=== PATIENT | female | born 1945 | race Caucasian/White ===

== ENCOUNTER 2018-01-26 12:19 | Inpatient (IN) | payer MEDICARE, OTHER ==
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
[2018-01-26 15:54] LABS: % BASOPHILS 0.3 % (0.0-2.0); % EOSINOPHILS 1.6 % (0.0-5.0); % LYMPHOCYTES 13.5 % (20.0-50.0); % NEUTROPHILS 76.6 % (40.0-80.0); EOSINOPHILE ABSOLUTE 0.1 Th/cmm (0.1-0.4); HEMATOCRIT 49.9 % (41.0-60); HEMOGLOBIN 15.7 gm/dL (12-16); MEAN CORPUSCULAR HEMOGLOBIN 31.5 pg (27.0-31.0); MEAN CORPUSCULAR HGB CONC 31.5 pg (28.0-36.0); MEAN PLATELET VOLUME 8.9 fl; MONOCYTE ABSOLUTE 0.6 Th/cmm (0.3-1.0); NEUTROPHILE ABSOLUTE 5.6 Th/cmm (1.8-8.0); PLATELET COUNT 285 Th/cmm (150-400); RED BLOOD COUNT 4.99 Mil/cmm (3.80-5.20); RED CELL DISTRIBUTION WIDTH 16.2 % (11.5-20.0); WHITE BLOOD COUNT 7.3 Th/cmm (4.8-10.8)
[2018-01-26] MEDS ORDERED: Albuterol/Ipratropium Neb 3 ML AERS HHN ONE ×2 (16:00→16:07)
[2018-01-26 16:05] LABS: ANION GAP 9.4 (7.0-16.0); BUN - UREA NITROGEN 26 mg/dL (7-25); CALCIUM SERUM 9.1 mg/dL (8.6-10.3); CARBON DIOXIDE 36.6 mEq/L (21.0-31.0); CHLORIDE 97 mEq/L (98-107); CREATININE - SERUM 0.9 mg/dL (0.6-1.2); GFR AFRICAN-AMERICAN > 60.0 ml/min (>90); GFR NON AFRICAN-AMERICAN > 60.0 ml/min; GLUCOSE 89 mg/dL (70-105); SODIUM SERUM 139 mEq/L (136-145)
[2018-01-26] MEDS ORDERED: Morphine Sulfate 2 mg/mL 1mL Syr IVP PRN (18:18)
[2018-01-26] MEDS ORDERED: Potassium Chloride 40 MEQ, Lidocaine 1% 20mL Vial 25 MG in Sodium Chloride 0.9% 250 ML IV PRN (18:18)
[2018-01-26] MEDS ORDERED: Potassium Chloride 20 mEq ER Tab PO PRN (18:18)
[2018-01-26] MEDS ORDERED: Mag Sulfate 2gm/50mL Premix 2 GM/50 ML BAG IV PRN (18:18)
[2018-01-26 20:44] LABS: A1C % 5.3 % (4.0-6.0)
[2018-01-27] MEDS: Sodium Chloride 0.9% 1,000 ML IV SCH (00:54)
[2018-01-27] MEDS: Escitalopram Oxalate 5 mg Tab PO SCH ×2 (00:55→21:29)
[2018-01-27] MEDS: Albuterol/Ipratropium Neb 3 ML AERS HHN SCH ×5 (01:12→18:48)
--- NOTE | 2018-01-27 07:49 | Diagnostic Imaging Report ---
Portable chest x-ray HISTORY: Cough The heart is enlarged. Atherosclerotic calcification seen in the aorta. Some linear parenchymal density noted in the right lung base. Changes may be chronic. However, early pneumonia or atelectasis cannot be excluded. Blunting of the left costophrenic angle. The finding may be associated with pleural thickening. A small effusion cannot be excluded. IMPRESSION: 1. Cardiomegaly with atherosclerotic vascular changes 2. Faint linear density within the right lung base. The finding may be chronic. However, early infiltrate cannot be excluded. Clinical correlation is needed. 3. Blunting left costophrenic angle. The finding may be associated with pleural thickening. A small pleural effusion cannot be excluded.
[2018-01-27] MEDS: INSULIN ASPART SLIDING SCALE 100 UNITS/ML UNIT SUBQ SCH ×4 (08:22→21:47)
[2018-01-27] MEDS: Ferrous Sulfate 325 MG TAB PO SCH ×2 (09:52→10:13)
[2018-01-27] MEDS: Levofloxacin 500mg/100mL 500 MG/100 ML BAG IV SCH (09:53)
--- NOTE | 2018-01-27 12:07 | History & Physical ---
ADMIT DATE: 01/26/2018 CHIEF COMPLAINT: Cough, congestion, fever, shortness of breath along with pus drainage out of the left eye socket. HISTORY OF PRESENT ILLNESS: The patient is a 72-year-old female. She presents for longterm facility for worsening left eye socket cellulitis along with cough, congestion and fevers. She has history of Alzheimer dementia, COPD, diabetes, and hypertension as well. The ER had given report seeing there was nothing significant amount of left thigh socket; however, this morning, there is a significant amount of drainage and pus as well. Chest x-ray shows developing infiltrate and the lungs along with her significant cough, congestion and shortness of breath contributing to the pneumonia picture as well. PAST MEDICAL HISTORY: Significant for alzheimer's dementia, COPD, diabetes, hypertension. SOCIAL HISTORY: No history of alcohol, tobacco, or drug abuse. FAMILY HISTORY: Noncontributory. ALLERGIES: HYDROCODONE and MORPHINE, but the exact reaction is unknown. HOME MEDICATIONS: Reviewed and reconciled. REVIEW OF SYSTEMS: GENERAL: Positive for recent fatigue and low grade fevers and decreased appetite. HEENT: No recent head trauma. She has no left eye in the socket. She has been experiencing some drainage and pain in the left eye socket. No change in taste or smell. Oral: No recent pain or discharge. SKIN: Positive for redness, erythema on the left eye socket as well. ABDOMEN: No recent pain or distention. PSYCHIATRIC: No history of psychosis or hallucinations. She does have history of labile mood. NEUROLOGIC: She has history of Alzheimer's dementia. Her confusion has been worsening recently. EXTREMITIES: No recent edema. RESPIRATORY: Positive for recent cough, congestion and shortness of breath as well. MUSCULOSKELETAL: She has history of unsteady gait. ENDOCRINE: She has a history of diabetes. GENITOURINARY: No recent increased urinary frequency, but there is a possibility of dysuria. PHYSICAL EXAMINATION: VITAL SIGNS: Temperature 97 degrees, heart rate is 86, respiration is 19, blood pressure 140/77. Currently, no pain. GENERAL: No acute distress, awake, alert to name and she knows she is in the hospital. HEENT: Normocephalic, atraumatic. Left eye socket has pus drainage and there is erythema and mild inflammation as well. ABDOMEN: Nontender, nondistended. NECK: No JVD. CARDIOVASCULAR: Regular rate and rhythm. ABDOMEN: Nontender, nondistended. EXTREMITIES: No edema. RESPIRATORY: Decreased breath sounds bilaterally with rales and congestion. MUSCULOSKELETAL: Decreased muscle strength in lower extremities. GENITOURINARY: No hematuria is noted. LABORATORY DATA: Sodium 139, potassium 4.0, chloride 97, bicarb 36.6, BUN 26, creatinine 0.9, calcium is 9.1, hemoglobin A1c is 5.3. White count is 7.3, hemoglobin 15.7, platelet count is 85,000. Chest x-ray shows infiltrates. ASSESSMENT: 1. Left eye socket cellulitis. 2. Aspiration pneumonia. 3. Alzheimer's dementia with exacerbation. 4. Chronic obstructive pulmonary disease. 5. Diabetes mellitus. 6. Hypertension. PLAN: The patient has been started on Levaquin and Flagyl. Morphine will not be given as she is allergic to hydromorphone/morphine as well. Continue tramadol p.r.n. pain. Follow up on the rest of the labs. Continue fingerstick blood sugars and regular insulin sliding scale. Her spirolactone has been changed to once a day. Vitals are stable. I have asked the staff to remove ____ as the patient is more calm and stable now. JOB# [id number]
[2018-01-27] MEDS: metroNIDAZOLE 500mg/NS 100mL 500 MG/100 ML BAG IV SCH ×2 (13:50→21:29)
[2018-01-28] MEDS: Albuterol/Ipratropium Neb 3 ML AERS HHN SCH ×4 (00:37→18:46)
[2018-01-28 05:38] LABS: % BASOPHILS 0.6 % (0.0-2.0); % LYMPHOCYTES 10.7 % (20.0-50.0); % MONOCYTES 7.6 % (2.0-10.0); % NEUTROPHILS 79.1 % (40.0-80.0); EOSINOPHILE ABSOLUTE 0.1 Th/cmm (0.1-0.4); HEMATOCRIT 46.1 % (41.0-60); HEMOGLOBIN 14.8 gm/dL (12-16); LYMPHOCYTE ABSOLUTE 0.7 Th/cmm (1.5-3.0); MEAN CELL VOLUME 98.8 fl (81-100); MEAN CORPUSCULAR HEMOGLOBIN 31.6 pg (27.0-31.0); MEAN PLATELET VOLUME 8.1 fl; MONOCYTE ABSOLUTE 0.5 Th/cmm (0.3-1.0); NEUTROPHILE ABSOLUTE 5.4 Th/cmm (1.8-8.0); PLATELET COUNT 209 Th/cmm (150-400); RED BLOOD COUNT 4.67 Mil/cmm (3.80-5.20); RED CELL DISTRIBUTION WIDTH 15.4 % (11.5-20.0); WHITE BLOOD COUNT 6.7 Th/cmm (4.8-10.8)
[2018-01-28 05:53] LABS: ANION GAP 7.2 (7.0-16.0); BUN - UREA NITROGEN 16 mg/dL (7-25); CARBON DIOXIDE 35.3 mEq/L (21.0-31.0); CHLORIDE 97 mEq/L (98-107); CREATININE - SERUM 0.6 mg/dL (0.6-1.2); GFR AFRICAN-AMERICAN > 60.0 ml/min (>90); GFR NON AFRICAN-AMERICAN > 60.0 ml/min; GLUCOSE 118 mg/dL (70-105); POTASSIUM SERUM 3.5 mEq/L (3.5-5.1); SODIUM SERUM 136 mEq/L (136-145)
[2018-01-28] MEDS: metroNIDAZOLE 500mg/NS 100mL 500 MG/100 ML BAG IV SCH ×3 (06:00→22:51)
[2018-01-28] MEDS: Sodium Chloride 0.9% 1,000 ML IV SCH (06:22)
[2018-01-28] MEDS: INSULIN ASPART SLIDING SCALE 100 UNITS/ML UNIT SUBQ SCH ×4 (06:47→21:30)
--- NOTE | 2018-01-28 09:00 | General Progress Note ---
Subjective - Review of Systems Service Date: 01/28/18 Subjective: Pt seen and eval. Comfortable in bed. No n,v,d or cp. No falls or sz. No acute pain. Confused. No seizures. Eye socket discharged improved. Objective - Results Result Diagrams: 01/28/18 05:10 01/28/18 05:10 Recent Labs: Laboratory Last Values WBC 6.7 Th/cmm (4.8-10.8) 01/28/18 05:10 RBC 4.67 Mil/cmm (3.80-5.20) 01/28/18 05:10 Hgb 14.8 gm/dL (12-16) 01/28/18 05:10 Hct 46.1 % (41.0-60) 01/28/18 05:10 MCV 98.8 fl (81-100) 01/28/18 05:10 MCH 31.6 pg (27.0-31.0) H 01/28/18 05:10 MCHC Differential 32.0 pg (28.0-36.0) 01/28/18 05:10 RDW 15.4 % (11.5-20.0) 01/28/18 05:10 Plt Count 209 Th/cmm (150-400) 01/28/18 05:10 MPV 8.1 fl 01/28/18 05:10 Neutrophils % 79.1 % (40.0-80.0) 01/28/18 05:10 Lymphocytes % 10.7 % (20.0-50.0) L 01/28/18 05:10 Monocytes % 7.6 % (2.0-10.0) 01/28/18 05:10 Eosinophils % 2.0 % (0.0-5.0) 01/28/18 05:10 Basophils % 0.6 % (0.0-2.0) 01/28/18 05:10 Sodium 136 mEq/L (136-145) 01/28/18 05:10 Potassium 3.5 mEq/L (3.5-5.1) 01/28/18 05:10 Chloride 97 mEq/L (98-107) L 01/28/18 05:10 Carbon Dioxide 35.3 mEq/L (21.0-31.0) H 01/28/18 05:10 Anion Gap 7.2 (7.0-16.0) 01/28/18 05:10 BUN 16 mg/dL (7-25) 01/28/18 05:10 Creatinine 0.6 mg/dL (0.6-1.2) 01/28/18 05:10 Est GFR ( Amer) > 60.0 ml/min (>90) 01/28/18 05:10 Est GFR (Non-Af Amer) > 60.0 ml/min 01/28/18 05:10 BUN/Creatinine Ratio 26.7 01/28/18 05:10 Glucose 118 mg/dL (70-105) H 01/28/18 05:10 POC Glucose 114 MG/DL (70 - 105) H 01/28/18 05:58 Hemoglobin A1c % 5.3 % (4.0-6.0) 01/26/18 15:00 Calcium 9.0 mg/dL (8.6-10.3) 01/28/18 05:10 Magnesium 2.3 mg/dL (1.9-2.7) 01/26/18 15:00 - Physical Exam Vitals and I&O: Vital Signs Temp 99 F 01/28/18 08:00 Pulse 94 01/28/18 08:00 Resp 20 01/28/18 08:00 BP 149/70 01/28/18 08:00 Pulse Ox 93 01/28/18 08:00 Intake & Output 01/27/18 01/28/18 01/28/18 18:59 06:59 18:59 Intake Total 2800 350 Balance 2800 350 Weight (lbs) 73.164 kg 73.028 kg Intake: Intake, IV Amount 1200 100 Levofloxacin 500mg/100mL 100 500 mg In 100 ml @ 100 mls/hr IV Q24HR [facility] Rx#: [id number] Sodium Chloride 0.9% 1, 1000 000 ml @ 70 mls/hr IV . [id number] [facility] Rx#:[id number] metroNIDAZOLE 500mg/NS 100 100 100mL 500 mg In 100 ml @ 100 mls/hr IV Q8HR [facility] Rx #:[id number] Oral 1600 250 Other: # Voids 3 3 # Bowel Movements 0 0 Stool Characteristics Soft Soft Weight Source Bedscale Bedscale Active Medications: Current Medications Acetazolamide (Diamox) 250 mg PO BID [facility] Stop: 03/28/18 09:07 Last Admin: 01/27/18 16:56 Dose: Not Given Albuterol/Ipratropium (Duoneb Neb) 3 ml HHN Q6H [facility] Stop: 03/27/18 18:29 Last Admin: 01/28/18 06:47 Dose: 3 ml Aspirin (Ecotrin) 81 mg PO DAILY [facility] Stop: 03/28/18 08:59 Last Admin: 01/27/18 10:13 Dose: Not Given Buspirone HCl (Buspar) 10 mg PO TID [facility] Stop: 03/27/18 20:59 Escitalopram Oxalate (Lexapro) 15 mg PO HS [facility] PRN Reason: Protocol Stop: 03/27/18 20:59 Last Admin: 01/27/18 21:29 Dose: 15 mg Ferrous Sulfate (Iron) 325 mg PO DAILY [facility] Stop: 03/28/18 08:59 Last Admin: 01/27/18 10:13 Dose: Not Given Heparin Sodium (Porcine) (Heparin) 5,000 units SUBQ Q12HR [facility] Stop: 03/27/18 20:59 Last Admin: 01/27/18 21:47 Dose: Not Given Potassium Chloride 40 meq/Lidocaine HCl 25 mg/ Sodium Chloride 272.5 mls @ 68 mls/hr IV DAILY PRN PRN Reason: k level less than 3.2 Stop: 03/27/18 18:17 Magnesium Sulfate (Magnesium Sulfate Premix) 2 gm in 50 mls @ 25 mls/hr IV DAILY PRN PRN Reason: Magnesium level less than 1.6 Stop: 03/27/18 18:17 Sodium Chloride (Nacl 0.9%) 1,000 mls @ 70 mls/hr IV .[id number] [facility] Stop: 03/27/18 22:39 Last Admin: 01/28/18 06:22 Dose: 70 mls/hr Levofloxacin (Levaquin Pb) 500 mg in 100 mls @ 100 mls/hr IV Q24HR [facility] Stop: 03/28/18 08:59 Last Infusion: 01/27/18 18:24 Dose: Infused Metronidazole (Flagyl) 500 mg in 100 mls @ 100 mls/hr IV Q8HR [facility] Stop: 03/28/18 12:59 Last Admin: 01/28/18 06:00 Dose: 100 mls/hr Insulin Aspart (Novolog Insulin Sliding Scale) 0 units SUBQ ACHS [facility] PRN Reason: Protocol Stop: 03/27/18 20:59 Last Admin: 01/28/18 06:47 Dose: Not Given Lorazepam (Ativan) 1 mg IVP Q4HR PRN; Protocol PRN Reason: Anxiety Stop: 03/27/18 18:17 Magnesium Oxide (Mag-Oxide) 400 mg PO BID PRN PRN Reason: Mg less than 1.9 Stop: 03/27/18 18:17 Ondansetron HCl (Zofran) 4 mg IVP Q6H PRN PRN Reason: Nausea / Vomiting Stop: 03/27/18 18:17 Potassium Chloride (Klor-Con) 40 meq PO DAILY PRN PRN Reason: k level less than 3.5 Stop: 03/27/18 18:17 Spironolactone (Aldactone) 25 mg PO DAILY [facility] Stop: 03/28/18 08:59 Last Admin: 01/27/18 10:14 Dose: Not Given Tramadol HCl (Ultram) 50 mg PO Q6HR PRN PRN Reason: Pain (Severe) Stop: 03/27/18 18:15 General: Cooperative, No acute distress HEENT: Other (eye socket discharge improved) Neck: Supple, no JVD Cardiovascular: Regular rate, Normal S1, Normal S2 Lungs: Other (has rales and congestion) Assessment/Plan - Assessment Assessment: Asp PNA Left eye socket cellulitis LAURA with exac COPD DM HTN - Plan Plan: Pt's puss drainage from eye socket has reduced. No n,v,d or cp. On breathing tx. On Levaquin and Flagyl. FU on labs.
[2018-01-28] MEDS: Ferrous Sulfate 325 MG TAB PO SCH (09:06)
[2018-01-28] MEDS: Levofloxacin 500mg/100mL 500 MG/100 ML BAG IV SCH (09:06)
[2018-01-28] MEDS: Escitalopram Oxalate 5 mg Tab PO SCH (21:39)
[2018-01-29] MEDS: Albuterol/Ipratropium Neb 3 ML AERS HHN SCH ×2 (00:22→07:39)
[2018-01-29 05:36] LABS: % BASOPHILS 0.1 % (0.0-2.0); % EOSINOPHILS 3.1 % (0.0-5.0); % LYMPHOCYTES 15.7 % (20.0-50.0); % MONOCYTES 7.5 % (2.0-10.0); % NEUTROPHILS 73.6 % (40.0-80.0); EOSINOPHILE ABSOLUTE 0.2 Th/cmm (0.1-0.4); HEMATOCRIT 46.8 % (41.0-60); HEMOGLOBIN 15.2 gm/dL (12-16); MEAN CELL VOLUME 98.2 fl (81-100); MEAN CORPUSCULAR HEMOGLOBIN 31.9 pg (27.0-31.0); MEAN CORPUSCULAR HGB CONC 32.5 pg (28.0-36.0); MEAN PLATELET VOLUME 8.4 fl; MONOCYTE ABSOLUTE 0.5 Th/cmm (0.3-1.0); NEUTROPHILE ABSOLUTE 4.5 Th/cmm (1.8-8.0); PLATELET COUNT 175 Th/cmm (150-400); RED BLOOD COUNT 4.76 Mil/cmm (3.80-5.20); RED CELL DISTRIBUTION WIDTH 15.7 % (11.5-20.0); WHITE BLOOD COUNT 6.2 Th/cmm (4.8-10.8)
[2018-01-29] MEDS: metroNIDAZOLE 500mg/NS 100mL 500 MG/100 ML BAG IV SCH (05:37)
[2018-01-29] MEDS: Sodium Chloride 0.9% 1,000 ML IV SCH (05:37)
[2018-01-29 05:51] LABS: ANION GAP 9.2 (7.0-16.0); BUN - UREA NITROGEN 8 mg/dL (7-25); CALCIUM SERUM 9.1 mg/dL (8.6-10.3); CARBON DIOXIDE 27.7 mEq/L (21.0-31.0); CHLORIDE 102 mEq/L (98-107); CREATININE - SERUM 0.5 mg/dL (0.6-1.2); GFR AFRICAN-AMERICAN > 60.0 ml/min (>90); GFR NON AFRICAN-AMERICAN > 60.0 ml/min; GLUCOSE 94 mg/dL (70-105); POTASSIUM SERUM 3.9 mEq/L (3.5-5.1); SODIUM SERUM 135 mEq/L (136-145)
[2018-01-29] MEDS: INSULIN ASPART SLIDING SCALE 100 UNITS/ML UNIT SUBQ SCH ×2 (06:58→12:36)
[2018-01-29] MEDS ORDERED: Sulfamethoxazole/TMP 800/160mg Tab PO SCH (09:00)
[2018-01-29] MEDS: Ferrous Sulfate 325 MG TAB PO SCH (09:10)
--- NOTE | 2018-01-29 09:41 | Discharge Summary ---
DATE OF DISCHARGE: 01/29/2018 CAUSE OF ADMISSION: The patient is a 72-year-old female. She presents from [facility] for worsening left eye socket cellulitis along with cough, congestion and fevers. She has history of Alzheimer dementia, COPD, diabetes, and hypertension as well. ER did not notice much discharge. However, by the time I saw her in the morning, she had pus draining. Also, at the facility, she was experiencing cough and congestion. Chest x-ray showed infiltrates as well. ADMITTING DIAGNOSES: 1. Left eye socket cellulitis. 2. Aspiration pneumonia. 3. Alzheimer dementia with exacerbation. 4. Chronic obstructive pulmonary disease. 5. Diabetes mellitus. 6. Hypertension. DISCHARGE DIAGNOSES: 1. Left eye socket cellulitis. 2. Aspiration pneumonia. 3. Alzheimer dementia with exacerbation. 4. Chronic obstructive pulmonary disease. 5. Diabetes mellitus. 6. Hypertension. SUMMARY OF HOSPITAL COURSE: The patient has been on Levaquin and Flagyl, Morphine was not given due to allergy. Continue tramadol p.r.n. pain. Labs were checked. She was on fingerstick blood sugars and regular insulin sliding scale. The patient has been calm and collected. Her vitals have improved. She is no longer spiking any fevers. Her congestion is improved as well. Also, eye infection is improved. Erythema, inflammation and the pus drainage has nearly resolved. PHYSICAL EXAMINATION: VITAL SIGNS: Temperature 97.5 degrees, heart rate is 80, respiration is 18, blood pressure is 135/74. Currently, no pain. GENERAL: No acute distress, awake. HEENT: No more drainage or discharge from the left eye socket. Oral cavity is clear. NECK: Trachea is midline. CARDIOVASCULAR: Regular rate and rhythm. ABDOMEN: Nontender, nondistended. PSYCHIATRIC: No psychosis or hallucinations. LABORATORY DATA: White count 6.2; hemoglobin is 15.2; platelet count is 175,000. Sodium 135, potassium 3.9, chloride 102, bicarbonate 27.7, BUN 8, creatinine 0.5 and chest x-ray shows infiltrate. PROGNOSIS: Fair. ACTIVITY: As tolerated. DISPOSITION: She is being discharged back to [facility]. MEDICATIONS: All medications reviewed and reconciled. We will continue Levaquin and Flagyl for 3 more days. PROCEDURES: None. CONSULTS: None. COMPLICATIONS: None. DIET: As tolerated. [facility]# [id number]
== END 2018-01-29 12:40 | DRG 177 ==
LOC: ER 12:19 → MSI 20:23
PROVIDERS: ADMIT General Practice; ATTEND General Practice
DX: J69.0 Pneumonitis due to inhalation of food and vomit (principal); J96.00 Acute respiratory failure, unspecified whether with hypoxia or hypercapnia; H05.012 Cellulitis of left orbit; F02.81 Dementia in other diseases classified elsewhere, unspecified severity, with behavioral disturbance; G30.9 Alzheimer's disease, unspecified; E11.9 Type 2 diabetes mellitus without complications; I11.9 Hypertensive heart disease without heart failure
CPT/HCPCS: 36415-UA; 71045-TC; 80048-TC; 82948-90; 83036-90; 83735-TC; 85025-TC; 87070-90; 90799; 94640; 94760; J1644; J1815; J1956; J2001; J3480; J7030; Z7610